=== PATIENT | female | born 1980 ===

== ENCOUNTER 2018-09-11 11:36 | Day surgery (SDC) | payer OTHER ==
[~2018-09-11] VITALS: Ht 172.7 cm; Wt 82.3 kg
[2018-09-11] MEDS ORDERED: Acyclovir200 MG (12:33)
--- NOTE | 2018-09-11 12:52 | NUR ---
09/11/[address] WONDERLY OK TO PROCEED WITH [facility] [place]. PT HAS HX OF PCN ALLERGY
--- NOTE | 2018-09-11 14:10 | NUR ---
09/11/18 1410 Odalys Reynaga RECEIVED REPORT FROM AUNDREA WYNN AT [facility] 1400. PATIENT UP TO RECLINER WITH ASSISTANCE. WAS SHAKY BUT ABLE TO STAND WITH MINIMAL HELP. PERIPAD AND BANDAIDS DRY AND INTACT. PATIENT STATES NO NAUSEA BUT DOES ADMIT TO PAIN 3/10 AFTER SETTLING INTO RECLINER AND REQUESTING SOMETHING FOR THE PAIN. PAIN MEDS GIVEN PER MD ORDER WILL CONTINUE TO MONITOR AND TREAT FOR PAIN ACCORDING TO ORDERS
== END 2018-09-11 14:47 | disposition home or self-care (01) ==
LOC: ORSCSDS 11:36
PROVIDERS: Obstetrics & Gynecology
PROC: 0UT74ZZ Resection of Bilateral Fallopian Tubes, Percutaneous Endoscopic Approach (ICD-10-PCS; principal; 2018-09-11 13:00)
DX: Z30.2 Encounter for sterilization (principal); F17.210 Nicotine dependence, cigarettes, uncomplicated
CPT/HCPCS: 88302; J0330; J0690; J1100; J1885; J2250; J2405; J2704; J3010; J7120